=== PATIENT | female | born 1985 | race Caucasian/White ===

== ENCOUNTER 2017-06-14 02:57 | Emergency (ER) | payer SELFPAY ==
[~2017-06-14] VITALS: Ht 170.2 cm; Wt 57.0 kg
[2017-06-14 02:59] VITALS: BP 109/75; PULSE 73; RESP 15; TEMP 97.8; O2SAT 100
--- NOTE | 2017-06-14 03:43 | PD ---
HPI Chief Complaint: Head Injury Time Seen by Provider: 03:16 Travel History International Travel<30 days: No Contact w/Intl Traveler<30days: No Traveled to known affect area: No History of Present Illness HPI 31-year-old female with history of no significant past medical issues, presents to the ER today because she states that she was walking and tach stinging in bumped into a pole, has a cut over her left eyebrow. She denies any loss of consciousness, but states she is dizzy and wanted to come get checked out especially the cut. She denies any headaches, vomiting, or any other injuries. Modifying Factors: None Associated Signs & Symptoms: Head injury, left eyebrow laceration Risk Factors: None PFSH Past Medical History Medical History: Denies Significant Hx Tetanus Vaccination: > 5 Years Influenza Vaccination: No ?: Not LMP: N/A Past Surgical History Surgical History: No Previous Surgery Social History Alcohol Use: Yes (RARE) Tobacco Use: Yes ( 2PPW) Substance Use: No Allergies-Medications (Allergen,Severity, Reaction): Coded Allergies: No Known Allergies (Unverified , 06/14/17) Reported Meds & Prescriptions Reported Meds & Active Scripts Active No Active Prescriptions or Reported Medications Review of Systems Except as stated in HPI: all other systems reviewed are Neg Physical Exam Narrative GENERAL: Well-developed young female patient currently in mild distress. Awake and oriented 3. SKIN: Focused skin assessment warm/dry. HEAD: Atraumatic. Normocephalic. EYES: Pupils equal and round. No scleral icterus. No injection or drainage. There is a 1 cm shallow laceration on the left eyelid not involving the lid margins or conjunctiva. ENT: No nasal bleeding or discharge. Mucous membranes pink and moist. NECK: Trachea midline. No JVD. CARDIOVASCULAR: Regular rate and rhythm. No murmur appreciated. RESPIRATORY: No accessory muscle use. Clear to auscultation. Breath sounds equal bilaterally. GASTROINTESTINAL: Abdomen soft, non-tender, nondistended. Hepatic and splenic margins not palpable. MUSCULOSKELETAL: No obvious deformities. No clubbing. No cyanosis. No edema. NEUROLOGICAL: Awake and alert. No obvious cranial nerve deficits. Motor grossly within normal limits. Normal speech. PSYCHIATRIC: Appropriate mood and affect; insight and judgment normal. Data Data Last Documented VS Vital Signs Date Time Temp Pulse Resp B/P (MAP) Pulse Ox O2 Delivery O2 Flow Rate FiO2 06/14/17 04:07 06/14/17 02:59 97.8 73 15 100 Room Air MDM Medical Decision Making Medical Screen Exam Complete: Yes Emergency Medical Condition: Yes Medical Record Reviewed: Yes Differential Diagnosis Minor head injury, left eyelid laceration Narrative Course Laceration was irrigated and Dermabond by me in the ER. Patient tolerated procedure well. I have talked to her regarding getting a CAT scan versus not, patient does not have any significant headaches, vomiting, mental status changes , and had no loss of consciousness. The likelihood of acute intracranial injury is lower considering no loss consciousness and the patient states to me that she does not want CAT scan to be done. Head injury instructions were given. Return for any worsening in symptoms, mental status changes, vomiting, headaches, and as needed. The plan has been discussed with her and she states understanding. Diagnosis Primary Impression: Eyelid laceration, left Additional Impression: Minor head injury without loss of consciousness Scripts No Active Prescriptions or Reported Meds Disposition: 01 DISCHARGE HOME Condition: Stable Brad Caldwell MD Jun 14, 2017 03:43
== END 2017-06-14 04:09 | disposition home or self-care (01) ==
LOC: NEPE 02:57
DX: S01.112A Laceration without foreign body of left eyelid and periocular area, initial encounter (principal); W22.8XXA Striking against or struck by other objects, initial encounter
CPT/HCPCS: 12011

== ENCOUNTER 2017-12-03 11:32 | Emergency (ER) | payer SELFPAY ==
[2017-12-03 11:38] VITALS: PULSE 70; RESP 20; TEMP 98.5; O2SAT 98
[2017-12-03 11:47] VITALS: BP_SYST 70; BP_SYST 81; BP_SYST 88; BP_DIAS 42; BP_DIAS 44; BP_DIAS 53
--- NOTE | 2017-12-03 11:50 | PD ---
HPI Chief Complaint: abnormal vitals Time Seen by Provider: 11:36 Travel History International Travel<30 days: No Contact w/Intl Traveler<30days: No Traveled to known affect area: No History of Present Illness HPI patient is an exparte at [facility] for opiate abuse. patient did not have any complaints but was getting her routine vitals when she was noted to have low blood pressure. unknown if correct size cuff used, since patient is asymptomatic. denies any alleviating/aggravating factors. 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 PFSH Social History Alcohol Use: Yes (RARE) Tobacco Use: Yes ( 2PPW) Substance Use: No Allergies-Medications (Allergen,Severity, Reaction): Coded Allergies: No Known Allergies (Unverified Adverse Reaction, Unknown, 12/03/17) Reported Meds & Prescriptions Reported Meds & Active Scripts Active Reported Vistaril (Hydroxyzine Pamoate) 50 Mg Cap 50 Mg PO HS Trazodone (Trazodone HCl) 50 Mg Tab 50 Mg PO HS Vitamin B-1 (Thiamine HCl) 100 Mg Tab 100 Mg PO DAILY Review of Systems Except as stated in HPI: all other systems reviewed are Neg General / Constitutional: No: Fever Eyes: No: Visual changes HENT: No: Headaches Cardiovascular: No: Chest Pain or Discomfort Respiratory: No: Shortness of Breath Gastrointestinal: No: Abdominal Pain Genitourinary: No: Dysuria Musculoskeletal: No: Pain Skin: No Rash Neurologic: No: Weakness Psychiatric: No: Depression Endocrine: No: Polydipsia Hematologic/Lymphatic: No: Easy Bruising Physical Exam Narrative GENERAL: thin, white female appears older than stated age in no distress SKIN: Warm and dry. HEAD: Atraumatic. Normocephalic. EYES: Pupils equal and round. No scleral icterus. No injection or drainage. ENT: No nasal bleeding or discharge. Mucous membranes pink and moist. NECK: Trachea midline. No JVD. CARDIOVASCULAR: Regular rate and rhythm. RESPIRATORY: No accessory muscle use. Clear to auscultation. Breath sounds equal bilaterally. GASTROINTESTINAL: Abdomen soft, non-tender, nondistended. MUSCULOSKELETAL: Extremities without clubbing, cyanosis, or edema. No obvious deformities. NEUROLOGICAL: Awake and alert. No obvious cranial nerve deficits. Motor grossly within normal limits. Five out of 5 muscle strength in the arms and legs. Normal speech. PSYCHIATRIC: Appropriate mood and affect; insight and judgment normal. Data Data Last Documented VS Vital Signs Date Time Temp Pulse Resp B/P (MAP) Pulse Ox O2 Delivery O2 Flow Rate FiO2 12/03/17 11:47 58 88/53 (65) 89 81/44 (56) 106 70/42 (51) 12/03/17 11:38 98.5 20 98 Orders Orders Sodium Chlor 0.9% 1000 Ml Inj (Ns 1000 M (12/03/17 11:56) Sodium Chlor 0.9% 1000 Ml Inj (Ns 1000 M (12/03/17 11:57) Urinalysis - C+S If Indicated (12/03/17 11:58) Drug Screen, Random Urine (12/03/17 11:58) Alcohol (Ethanol) (12/03/17 11:58) Labs Laboratory Tests Test 12/03/17 12:10 Ethyl Alcohol Level LESS THAN 3 MG/DL MDM Medical Decision Making Medical Screen Exam Complete: Yes Emergency Medical Condition: Yes Medical Record Reviewed: Yes Differential Diagnosis orthostatic hypotension v medication adverse effect v dehydration Narrative Course noted that patient was given clonidine, trazodone and vistaril last night which could obviously cause lowering of blood pressure. as well as wrong cuff size in a rather thin, small for height patient. orthostatic vitals were positive, hr from 58 to 106 with sbp from 88 down to 70 fully resolved lightheadedness, and normal blood pressure after receiving 2 liters of normal saline. pt is now stable to return to [facility] Diagnosis Primary Impression: hypotension due to medication (clonidine) Additional Instructions: please beware of combining trazodone along with clonidine Disposition: 70 TRANSFER TO OTHER FACILITY (returned to [facility]) Condition: Stable Pernell Newsome MD Dec 03, 2017 11:50
[2017-12-03] MEDS ORDERED: VIST50CA PO (11:54)
[2017-12-03] MEDS ORDERED: TRAZ50TA12 PO (11:54)
[2017-12-03] MEDS ORDERED: VITA100T54 PO (11:54)
[2017-12-03] MEDS ORDERED: SODIUM CHLOR 0.9% 1000 ML INJ 1,000 ML IV SCH ×2 (11:56→11:57)
[2017-12-03 15:43] VITALS: BP 105/60
== END 2017-12-03 15:43 | disposition short-term general hospital (02) ==
LOC: NEPD 11:32
DX: I95.2 Hypotension due to drugs (principal); T46.5X5A Adverse effect of other antihypertensive drugs, initial encounter; Z72.0 Tobacco use; Z79.899 Other long term (current) drug therapy
CPT/HCPCS: 80307; 99283; J7030